=== PATIENT | female | born 1980 ===

== ENCOUNTER → 2023-04-21 | Outpatient (CLI) | payer OTHER ==
[~2023-04-21] MED LIST: ALPR.5; ARIP30 PO; ATOR40TA PO; BENZ1 PO; BUSP15; BUSP15 PO; CALCIT950 PO; CEPH500 PO; CHOLESTEROL MED; CLIN300 PO; CODEINE PO; CRUTCH4 USE; Desyrel150 MG PO; FISH1000 PO; HYDACE5 PO; IBUP600 PO; MECL12.5 PO; MECL25 PO; Mononessa1 EACH PO; NAPR500 PO; Norco 5-325 Ta1 EACH PO; OXYACE5T PO; OXYC5; PENVK500 PO; PROM25 PO; Percocet 5-3251 EACH PO; QUET100 PO; QUET300; RXPENVK250 PO; SERT100; SERT100 PO; SIMV80 PO; SUMA25 PO; TRAZ100 PO; TYLENOL PO
== END ==
LOC: LAB SHORT 14:10 → LAB 14:10
DX: Z90.5 Acquired absence of kidney (principal)
CPT/HCPCS: 82436